=== PATIENT | female | born 1960 | race Caucasian/White ===

== ENCOUNTER → 2021-07-03 | Outpatient (CLI) | payer BC ==
[2021-04-28 11:29] VITALS: BP 125/51
[~2021-07-03] MED LIST: IOHEXOL 240 MG/ML 50ML VIAL. PO ONE; IOHEXOL 300 MG/ML 100ML VIAL. IV ONE; OXYC1TAB15 PO
--- NOTE | 2021-07-03 16:44 | RAD ---
EXAM: CT ABDOMEN/PELVIS WITH AND WITHOUT CONTRAST. HISTORY: Pancreatic mass. TECHNIQUE: Computed tomography of the abdomen and pelvis was performed before and after the intraveno us administration of iodinated contrast. One or more of the following individualized dose reduction t echniques were utilized for this examination: 1. Automated exposure control. 2. Adjustment of the mA and/or kV according to patient size. 3. Use of iterative reconstruction technique. COMPARISON: 04/26/2021, 04/25/2021. FINDINGS: Lung windows through the visualized portions of the bases reveal mild atelectasis. There is a small hiatal hernia. Bone windows reveal no suspicious lesions. The previously noted hematoma just anteroinferior to the proximal duodenum now measures 10.0 x 5.4 cm , decreased from 14 x 6 cm previously. No clear underlying lesion suggesting a cause of hemorrhage is identified. There is no adjacent pancreatic parenchymal mass. No solid pancreatic lesions are identi fied. There is no clear pseudoaneurysm or other vascular lesion. Refer to today's MRCP for description of a small cystic mass adjacent to the tail the pancreas as see n on image 41 of series 4. No internal enhancing component is seen. The gallbladder is surgically absent. The liver, adrenal glands, spleen and kidneys are unremarkable. 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 There is mild in frarenal abdominal aortic ectasia with maximum diameter 0.9 cm. There is no aneurysmal dilatation. Th ere are no pathologically enlarged lymph nodes. Sigmoid diverticulosis is mild. The appendix is not inflamed. There is no small bowel obstruction. St ool throughout the colon is consistent with constipation. The uterus is surgically absent. IMPRESSION: 1. Interval decrease in size in the hematoma just anteroinferior to the proximal duodenum. No clear u nderlying pancreatic cause for hemorrhage is identified. Endoscopy could assess for a duodenal cause such as a contained perforated ulcer. 2. Refer to today's MRCP for description of a small cystic mass at the pancreatic tail. 3. Correlate for constipation. 4. 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 5. Small hiatal hernia. Electronically signed by: Vangie Estrada MD (07/03/2021 4:41 PM) [id number]
== END ==
LOC: CT 09:42
PROVIDERS: ATTEND Surgery
DX: S36.420A Contusion of duodenum, initial encounter (principal); K86.9 Disease of pancreas, unspecified; K44.9 Diaphragmatic hernia without obstruction or gangrene; I72.2 Aneurysm of renal artery; I77.811 Abdominal aortic ectasia; J98.11 Atelectasis; K57.30 Diverticulosis of large intestine without perforation or abscess without bleeding; X58.XXXA Exposure to other specified factors, initial encounter; Y93.89 Activity, other specified; Y92.89 Other specified places as the place of occurrence of the external cause; Y99.8 Other external cause status; Z90.49 Acquired absence of other specified parts of digestive tract; Z90.710 Acquired absence of both cervix and uterus
CPT/HCPCS: 72193; 74170; Q9966; Q9967

== ENCOUNTER → 2021-07-03 | Outpatient (CLI) | payer BC ==
[2021-04-28 11:29] VITALS: BP 125/51
[~2021-07-03] MED LIST changes: -IOHEXOL 240 MG/ML 50ML VIAL. PO ONE; -IOHEXOL 300 MG/ML 100ML VIAL. IV ONE
--- NOTE | 2021-07-03 16:44 | RAD ---
EXAM: MRI ABDOMEN WITHOUT CONTRAST. HISTORY: Pancreatic mass. TECHNIQUE: MRI of the abdomen was performed without intravenous contrast. Three-dimensional reconstru ctions of the biliary tree were also performed. COMPARISON: Today CT, 04/25/2021, 04/26/2021. FINDINGS: Liver: Hepatic parenchymal signal loss on opposed phase images indicates mild diffuse hepatic steatos is. There are no suspicious hepatic lesions. Biliary tree: The gallbladder is surgically absent. The common duct is at the upper limits of normal caliber status post cholecystectomy. No cause for distal obstruction is seen. The hematoma along the anteroinferior aspect of the proximal duodenum is decreased in size at approxi mately 9.4 x 4.8 cm. No underlying pancreatic parenchymal lesion is identified. A cystic mass arises from the superior aspect of the pancreatic tail and measures 2.0 x 1.5 cm. This appears to arise from a pancreatic ductal side branch. No internal enhancing component is appreciable on today's CT. The main pancreatic duct is not dilated. A few other mildly dilated sidebranches are scattered elsewhere. Other findings: The kidneys, adrenal glands and spleen are unremarkable. Stool throughout the colon i s consistent with constipation. IMPRESSION: 1. 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 No clear suspicious component is identified. Follow-up MRCP w ith and without contrast is suggested in 6 months given lesion size. 2. Resolving hematoma along the anteroinferior aspect of the proximal duodenum. No underlying pancrea tic lesion is seen. Endoscopy could assess for a duodenal cause such as a contained perforated ulcer. 3. Mild diffuse hepatic steatosis. Electronically signed by: Vangie Estrada MD (07/03/2021 4:41 PM) [id number]
== END ==
LOC: MRI 09:41
PROVIDERS: ATTEND Internal Medicine Gastroenterology
DX: S36.22 Contusion of pancreas (principal); K86.9 Disease of pancreas, unspecified; X58.XXXD Exposure to other specified factors, subsequent encounter; K76.0 Fatty (change of) liver, not elsewhere classified; Z90.49 Acquired absence of other specified parts of digestive tract
CPT/HCPCS: 74181